=== PATIENT | male | born 1940 | race American Indian/Alaskan Native ===

== ENCOUNTER 2018-02-13 20:29 | Observation (INO) | payer BC, MEDICARE ==
[2018-02-13] MEDS ORDERED: ASPIRIN ONE (21:23)
[2018-02-13] MEDS ORDERED: ASPIRIN PO ONE (21:24)
[2018-02-13 22:04] LABS: Basophils % (Auto) 0.8 % (0.0-1.8); Eosinophils # (Auto) 0.3 K/mm3 (0.0-0.4); Eosinophils % (Auto) 5.6 % (0.0-4.3); Hematocrit 45.5 % (35.5-45.6); Hemoglobin 15.6 gm/dl (11.8-15.2); Lymphocytes % (Auto) 38.6 % (13.4-35.0); Mean Corpuscular HGB Conc 34 % (32-34); Mean Corpuscular Hemoglobin 32 pg (28-32); Mean Corpuscular Volume 93 fl (84-94); Monocytes # (Auto) 0.5 K/mm3 (0.0-0.8); Monocytes % (Auto) 10.1 % (0.0-7.3); Platelet Count 222 K/mm3 (140-440); Red Blood Count 4.89 M/mm3 (3.65-5.03)
[2018-02-13 22:08] LABS: Partial Thromboplastin Time 31.6 Sec. (24.2-36.6)
[2018-02-13 22:28] LABS: BUN/Creatinine Ratio 9; Blood Urea Nitrogen 9 mg/dL (9-20); Hemolysis Index 14
--- NOTE | 2018-02-13 23:41 | Emergency Department Report ---
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 Pain is left-sided chest like a pressure rated 5/10 in intensity, intermittent with no aggravating or relieving factors. Patient has some shortness of breath earlier today while at rest but denies shortness of breath at this time. Patient denies recent travel, leg pain/edema, history of PE/DVT, or known heart problems. Patient outpatient cardiac workup with [facility] patient access specialist early this year including stress test and echocardiogram and to his knowledge his workup was unremarkable. Denies history of previous cath. - Related Data Allergies Allergy/AdvReac Type Severity Reaction Status Date / Time No Known Allergies Allergy Unverified 02/13/18 21:24 Heart Score - HEART Score History: Slightly suspicious EKG: Non-specific Age: 45-65 Risk factors: 1-2 risk factors Troponin: < normal limit HEART Score: 3 ED Review of Systems ROS: Stated complaint: CHEST PAIN/ SOB Other details as noted in HPI Comment: All other systems reviewed and negative ED Past Medical Hx - Past Medical History Hx Hypertension: Yes Hx of Cancer: Yes (Lymph nodes) - Social History Smoking Status: Never Smoker Substance Use Type: Alcohol ED Physical Exam - General Limitations: No Limitations - Other Other exam information: General: No limitations, patient is alert in no acute distress Head exam: Atraumatic, normocephalic Eyes exam: Normal appearance ENT: Moist mucous membrane, normal oropharynx Neck exam: Normal inspection, full range of motion, no meningismus nontender Respiratory exam: Clear to auscultation bilateral, no wheezes, rales, crackles Cardiovascular: Normal rate and rhythm, normal heart sounds, chest wall nontender Abdomen: Soft, nondistended, and nontender, with normal bowel sounds, no rebound, or guarding Extremity: Full range of motion normal inspection no deformity, no calf tenderness or edema Back: Normal Inspection, full range of motion, no tenderness Neurologic: Alert, oriented x3, cranial nerves intact, no motor or sensory deficit Psychiatric: normal affect, normal mood Skin: Warm, dry, intact ED Course Vital Signs 02/13/18 02/13/18 02/13/18 21:19 23:34 23:41 Temperature 98.4 F 98.1 F Pulse Rate 74 70 67 Respiratory 17 18 Rate Blood Pressure 147/80 Blood Pressure 163/83 [Left] O2 Sat by Pulse 99 99 Oximetry 02/13/18 23:46 Temperature Pulse Rate 67 Respiratory 17 Rate Blood Pressure 163/83 Blood Pressure [Left] O2 Sat by Pulse 100 Oximetry - Consultations Consultation #1: 02/14/18 00:02 case d/w DR marshall supervisor [employer] Card for sy heart. Informed pt to be admitted. MELITA score - Melita Score Age > 65: (1) Yes Aspirin use within the Past 7 Days: (0) No 3 or more CAD Risk Factors: (0) No 2 or more Angina events in past 24 hrs: (0) No Known CAD with more than 50% Stenosis: (0) No ST Deviation Greater than 0.5mm: (0) No ED Medical Decision Making - Lab Data Result diagrams: 02/13/18 21:50 02/13/18 21:50 Lab Results 02/13/18 02/13/18 02/13/18 Range/Units 21:50 21:50 21:50 WBC 5.3 (4.5-11.0) K/mm3 RBC 4.89 (3.65-5.03) M/mm3 Hgb 15.6 H (11.8-15.2) gm/dl Hct 45.5 (35.5-45.6) % MCV 93 (84-94) fl MCH 32 (28-32) pg MCHC 34 (32-34) % RDW 15.0 (13.2-15.2) % Plt Count 222 (140-440) K/mm3 Lymph % (Auto) 38.6 H (13.4-35.0) % [place] % (Auto) 10.1 H (0.0-7.3) % Eos % (Auto) 5.6 H (0.0-4.3) % Baso % (Auto) 0.8 (0.0-1.8) % Lymph # 2.0 (1.2-5.4) K/mm3 Winn # 0.5 (0.0-0.8) K/mm3 Eos # 0.3 (0.0-0.4) K/mm3 Baso # 0.0 (0.0-0.1) K/mm3 Seg Neutrophils % 44.9 (40.0-70.0) % Seg Neutrophils # 2.4 (1.8-7.7) K/mm3 PT 12.6 (12.2-14.9) Sec. INR 0.90 (0.87-1.13) APTT 31.6 (24.2-36.6) Sec. D-Dimer < 135.00 (0-234) ng/mlDDU Sodium 135 L (137-145) mmol/L Potassium 3.2 L (3.6-5.0) mmol/L Chloride 94.0 L (98-107) mmol/L Carbon Dioxide 27 (22-30) mmol/L Anion Gap 17 mmol/L BUN 9 (9-20) mg/dL Creatinine 1.0 (0.8-1.5) mg/dL Estimated GFR > 60 ml/min BUN/Creatinine Ratio 9 % Glucose 138 H (75-100) mg/dL Calcium 9.0 (8.4-10.2) mg/dL Magnesium (1.7-2.3) mg/dL Troponin T < 0.010 (0.00-0.029) ng/mL 02/13/18 Range/Units 21:50 WBC (4.5-11.0) K/mm3 RBC (3.65-5.03) M/mm3 Hgb (11.8-15.2) gm/dl Hct (35.5-45.6) % MCV (84-94) fl MCH (28-32) pg MCHC (32-34) % RDW (13.2-15.2) % Plt Count (140-440) K/mm3 Lymph % (Auto) (13.4-35.0) % [place] % (Auto) (0.0-7.3) % Eos % (Auto) (0.0-4.3) % Baso % (Auto) (0.0-1.8) % Lymph # (1.2-5.4) K/mm3 Winn # (0.0-0.8) K/mm3 Eos # (0.0-0.4) K/mm3 Baso # (0.0-0.1) K/mm3 Seg Neutrophils % (40.0-70.0) % Seg Neutrophils # (1.8-7.7) K/mm3 PT (12.2-14.9) Sec. INR (0.87-1.13) APTT (24.2-36.6) Sec. D-Dimer (0-234) ng/mlDDU Sodium (137-145) mmol/L Potassium (3.6-5.0) mmol/L Chloride (98-107) mmol/L Carbon Dioxide (22-30) mmol/L Anion Gap mmol/L BUN (9-20) mg/dL Creatinine (0.8-1.5) mg/dL Estimated GFR ml/min BUN/Creatinine Ratio % Glucose (75-100) mg/dL Calcium (8.4-10.2) mg/dL Magnesium 1.80 (1.7-2.3) mg/dL Troponin T (0.00-0.029) ng/mL - EKG Data -: EKG Interpreted by Me EKG shows normal: sinus rhythm (65), axis (qrs 3), QRS complexes (qrsd 84), ST- T waves (lat t inv) Rate: normal - EKG Data When compared to previous EKG there are: previous EKG unavailable - Radiology Data Radiology results: image reviewed (cxr: kae read by me, official report pending) - Medical Decision Making cp no stemi initial trop neg (repeat neg) possible neg card workup earlier this year (not available for review at this time) ddimer neg, with low pretest wells criteria cxr prelim read by me kae asa given case d/w cards, will admit for further review Hypokalemia cause unclear (awaiting verification of current med list) po kcl provided mag normal - Differential Diagnosis unstable angina, MT, pneumothorax, atypical chest pain, PE Critical Care Time: No Critical care attestation.: If time is entered above; I have spent that time in minutes in the direct care of this critically ill patient, excluding procedure time. ED Disposition Clinical Impression: Chest pain, Hypokalemia, HTN (hypertension) Disposition: OP ADMIT IP TO THIS HOSP Is pt being admited?: Yes Condition: Stable Time of Disposition: 00:07 (Dr blackburn/hospitalist)
[2018-02-13] MEDS ORDERED: K-DUR PO ONE (23:42)
--- NOTE | 2018-02-14 00:25 | XRay Report ---
FINAL REPORT EXAM: XR CHEST ROUTINE 2V HISTORY: cp TECHNIQUE: PA and lateral views of the chest were submitted. FINDINGS: The heart is mildly enlarged. The lungs are clear. Pleural fluid is not seen. The lungs are not congested. The skeletal structures reveal multilevel disc degeneration in the thoracic spine. IMPRESSION: No active chest disease.
[2018-02-14] MEDS ORDERED: PERCOCET 5/325 PO PRN (00:57)
[2018-02-14] MEDS ORDERED: SODIUM CHLORIDE FLUSH SYRINGE 10 ML IV PRN (00:57)
[2018-02-14] MEDS ORDERED: TYLENOL PO PRN (00:57)
[2018-02-14] MEDS ORDERED: ZOFRAN IV PRN (00:57)
--- NOTE | 2018-02-14 00:57 | History and Physical Report ---
History of Present Illness Date of examination: 02/14/18 History of present illness: 77-year-old man with history of hypertension, hyperlipidemia comes emergency room with complaints of left-sided chest pain that started yesterday. He describes it as a heavy sensation, intermittent in nature, unable to fill along the lateral circumflex, density, 10, no radiation, he can't identify exacerbating or relieving factors. Denies nausea vomiting, transfer, diaphoresis or palpitation. He had a stress test and cardiac cath in September, states everything was normal Review of systems Constitutional: no weight loss, chills Ears, eyes, nose, mouth and throat: no nasal congestion, no nasal discharge, no sinus pressure, no vision change, no red eye. Neck: No neck pain or rigidity. Cardiovascular: no palpitations Respiratory: No cough, shortness of breath Gastrointestinal: no abdominal pain, hematochezia Genitourinary : no dysuria, frequency , no hematuria Musculoskeletal: no joint swelling or muscle ache Integumentary: no rash, no pruritis Neurological: no parathesias, no numbness, no focal weakness Endocrine: no cold or heat intolerance, no polyuria or polydipsia Hematologic/Lymphatic: no easy bruising, no easy bleeding, no gland swelling Allergic/Immunologic: no urticaria, no angioedema. PAST MEDICAL HISTORY: Hypertension, hyperlipidemia PAST SURGICAL HISTORY: Surgery on neck for cancer SOCIAL HISTORY: Admits to alcohol, no tobacco or drugs FAMILY HISTORY: Hypertension Medications and Allergies Allergies Allergy/AdvReac Type Severity Reaction Status Date / Time No Known Allergies Allergy Unverified 02/13/18 21:24 Exam - Physical Exam Narrative exam: Gen. appearance: Patient lying in bed, no apparent distress HEENT: Normocephalic, atraumatic, pupils equally round and reactive to light, extraocular movement intact, and no sclericterus,. No JVD or thyromegaly or nodule,neck supple, no carotid bruit ,mucous membranes moist, no exudate or erythema Heart: S1, S2, regular rate and rhythm Lungs: Clear to auscultation bilaterally, breathing comfortable Abdomen: Positive bowel sounds, nontender, nondistended, no organomegaly Extremity: No edema, cyanosis, clubbing Skin: No rash, nodules, warm, dry Neuro: Oriented 3, cranial nerves II-12 intact, speech is fluent, motor and sensory intact - Constitutional Vitals: Temp Pulse Resp BP Pulse Ox 98.1 F 67 17 163/83 100 02/13/18 23:41 02/13/18 23:46 02/13/18 23:46 02/13/18 23:46 02/13/18 23:46 Results - Labs CBC & Chem 7: 02/13/18 21:50 02/13/18 21:50 Labs: Abnormal lab results 02/13/18 02/13/18 Range/Units 21:50 21:50 Hgb 15.6 H (11.8-15.2) gm/dl Lymph % (Auto) 38.6 H (13.4-35.0) % [place] % (Auto) 10.1 H (0.0-7.3) % Eos % (Auto) 5.6 H (0.0-4.3) % Sodium 135 L (137-145) mmol/L Potassium 3.2 L (3.6-5.0) mmol/L Chloride 94.0 L (98-107) mmol/L Glucose 138 H (75-100) mg/dL - Imaging and Cardiology EKG: image reviewed Chest x-ray: image reviewed Assessment and Plan Assessment Chest pain Hypertension Hyperlipidemia Plan Admit to medicine Check cardiac enzymes, consult cardiology Percocet for pain, DVT prophylaxis
[2018-02-14 01:29] LABS: Creatine Kinase MB 2.7 ng/mL (0.0-4.0)
[2018-02-14 04:01] LABS: Basophils % (Auto) 0.6 % (0.0-1.8); Eosinophils # (Auto) 0.3 K/mm3 (0.0-0.4); Hematocrit 43.3 % (35.5-45.6); Hemoglobin 14.9 gm/dl (11.8-15.2); Lymphocytes # (Auto) 2.4 K/mm3 (1.2-5.4); Lymphocytes % (Auto) 41.6 % (13.4-35.0); Mean Corpuscular HGB Conc 34 % (32-34); Mean Corpuscular Hemoglobin 32 pg (28-32); Mean Corpuscular Volume 94 fl (84-94); Monocytes # (Auto) 0.6 K/mm3 (0.0-0.8); Monocytes % (Auto) 10.9 % (0.0-7.3); Platelet Count 217 K/mm3 (140-440); Red Blood Count 4.62 M/mm3 (3.65-5.03); Red Cell Distribution Width 15.1 % (13.2-15.2)
[2018-02-14 04:20] LABS: BUN/Creatinine Ratio 11; Blood Urea Nitrogen 11 mg/dL (9-20); Hemolysis Index 6
[2018-02-14 09:13] LABS: Creatine Kinase MB 2.2 ng/mL (0.0-4.0)
[2018-02-14] MEDS ORDERED: LOVENOX SUB-Q SCH (10:00)
--- NOTE | 2018-02-14 11:08 | Consultation ---
History of Present Illness Consult date: 02/14/18 Consult reason: chest pain History of present illness: This is a 77yr old male who is admitted with chest pain. Patient describes chest pain as midsternal pain that began shortly after eating fast food associated with nausea. He denies shortness of breath and palpitations. He denies vomiting. There was no syncope. His most latest cardiac workup was done 4 months ago. He had a thallium stress test that reports a small fixed basal inferolateral wall defect of mild intensity. An echocardiogram documents mild left ventricular hypertrophy and a normal left ventricular ejection fraction, 55-60%. Today, patient reports he is feeling better. He reports his chest pain has resolved. Cardiac enzymes were negative. His ECG is a sinus rhythm with nonspecific Twave abnormalities. No change in comparison to prior. Medications and Allergies Allergies Allergy/AdvReac Type Severity Reaction Status Date / Time No Known Allergies Allergy Unverified 02/13/18 21:24 Active Meds: Active Medications Acetaminophen (Tylenol) 650 mg PO Q4H PRN PRN Reason: Pain MILD(1-3)/Fever >100.5/[place] Enoxaparin Sodium (Lovenox) 40 mg SUB-Q QDAY LEW Ondansetron HCl (Zofran) 4 mg IV Q8H PRN PRN Reason: Nausea And Vomiting Oxycodone/Acetaminophen (Percocet 5/325) 1 tab PO Q6H PRN PRN Reason: Pain, Moderate (4-6) Sodium Chloride (Sodium Chloride Flush Syringe 10 Ml) 10 ml IV BID LEW Sodium Chloride (Sodium Chloride Flush Syringe 10 Ml) 10 ml IV PRN PRN PRN Reason: LINE FLUSH Physical Examination Vital Signs Temp Pulse BP 98.4 F 74 147/80 02/13/18 21:19 02/13/18 21:19 02/13/18 21:19 General appearance: no acute distress HEENT: Positive: PERRL Neck: Positive: trachea midline Cardiac: Positive: Reg Rate and Rhythm Lungs: Positive: Decreased Breath Sounds Neuro: Positive: Grossly Intact Extremities: Absent: edema Results 02/14/18 03:42 02/14/18 03:42 Cardiac Enzymes 02/14/18 02/14/18 Range/Units 00:09 08:27 CK-MB (CK-2) 2.7 2.2 (0.0-4.0) ng/mL Coagulation 02/13/18 Range/Units 21:50 PT 12.6 (12.2-14.9) Sec. INR 0.90 (0.87-1.13) APTT 31.6 (24.2-36.6) Sec. CBC 02/13/18 02/14/18 Range/Units 21:50 03:42 WBC 5.3 5.7 (4.5-11.0) K/mm3 RBC 4.89 4.62 (3.65-5.03) M/mm3 Hgb 15.6 H 14.9 (11.8-15.2) gm/dl Hct 45.5 43.3 (35.5-45.6) % Plt Count 222 217 (140-440) K/mm3 Lymph # 2.0 2.4 (1.2-5.4) K/mm3 [place] # 0.5 0.6 (0.0-0.8) K/mm3 Eos # 0.3 0.3 (0.0-0.4) K/mm3 Baso # 0.0 0.0 (0.0-0.1) K/mm3 Comprehensive Metabolic Panel 02/13/18 02/14/18 Range/Units 21:50 03:42 Sodium 135 L 138 (137-145) mmol/L Potassium 3.2 L 3.7 (3.6-5.0) mmol/L Chloride 94.0 L 96.8 L (98-107) mmol/L Carbon Dioxide 27 30 (22-30) mmol/L BUN 9 11 (9-20) mg/dL Creatinine 1.0 1.0 (0.8-1.5) mg/dL Glucose 138 H 132 H (75-100) mg/dL Calcium 9.0 9.0 (8.4-10.2) mg/dL Assessment and Plan - Patient Problems (1) Chest pain Current Visit: Yes Status: Acute (2) HTN (hypertension) Current Visit: Yes Status: Acute
[2018-02-14] MEDS: SODIUM CHLORIDE FLUSH SYRINGE 10 ML IV SCH ×2 (11:15→21:52)
--- NOTE | 2018-02-14 12:08 | Progress Note ---
Assessment and Plan Assessment and plan: Patient is 77 yo man with a history of hypertension and dyslipidemia who pw left cp. It appears he had recent cardiac workup with a stress test, so Cardiology consulted for direction on recurrent chest pains. -Chest pains, appears atypical by history, suspect GERD related: treat with PPI and await Cardiology's recommendation -GERD: treat with protonix -Hypertension: low salt diet, treat with antihypertensives -Dyslipidemia: treat with statins. -DVT ppx: sq lovenox History Interval history: Patient was seen and examined. Follow-up on current diagnosis of left sided chest pains, resolved currently. Overnight uneventful. Patient denies any chest pain, shortness breath, nausea/vomiting or severe headaches. Imaging, nursing note, chart, labs and old chart reviewed. Discussed with patient. Hospitalist Physical - Physical exam Narrative exam: GEN: WDWN, NAD, Awake, Alert, Orientated x 3 HEENT: NCAT, EOMI, PERRL, OP Clear NECK: supple, no adenopathy, no thyromegaly, no JVD CVS/HEART: RRR, normal S1S2, pulses present bilaterally CHEST/LUNGS: CTA B, Symmetrical chest expansion, good air entry bilaterally GI/Abdomen: soft, NTND, good bowel sounds, no guarding or rebound /Bladder: no suprapubic tenderness, no CVA or paraspinal tenderness EXT/Skin: no c/c/e, no obvious rash MSK: FROM x 4 Neuro: CN 2-12 grossly intact, no new focal deficits Psych: calm - Constitutional Vitals: Temp Pulse Resp BP Pulse Ox 98.1 F 66 20 119/83 97 02/13/18 23:41 02/14/18 10:30 02/14/18 10:30 02/14/18 10:30 02/14/18 10:30 General appearance: Present: no acute distress Results - Labs CBC & Chem 7: 02/14/18 03:42 02/14/18 03:42 Labs: Laboratory Last Values WBC 5.7 K/mm3 (4.5-11.0) 02/14/18 03:42 RBC 4.62 M/mm3 (3.65-5.03) 02/14/18 03:42 Hgb 14.9 gm/dl (11.8-15.2) 02/14/18 03:42 Hct 43.3 % (35.5-45.6) 02/14/18 03:42 MCV 94 fl (84-94) 02/14/18 03:42 MCH 32 pg (28-32) 02/14/18 03:42 MCHC 34 % (32-34) 02/14/18 03:42 RDW 15.1 % (13.2-15.2) 02/14/18 03:42 Plt Count 217 K/mm3 (140-440) 02/14/18 03:42 Lymph % (Auto) 41.6 % (13.4-35.0) H 02/14/18 03:42 [place] % (Auto) 10.9 % (0.0-7.3) H 02/14/18 03:42 Eos % (Auto) 5.0 % (0.0-4.3) H 02/14/18 03:42 Baso % (Auto) 0.6 % (0.0-1.8) 02/14/18 03:42 Lymph # 2.4 K/mm3 (1.2-5.4) 02/14/18 03:42 [place] # 0.6 K/mm3 (0.0-0.8) 02/14/18 03:42 Eos # 0.3 K/mm3 (0.0-0.4) 02/14/18 03:42 Baso # 0.0 K/mm3 (0.0-0.1) 02/14/18 03:42 Seg Neutrophils % 41.9 % (40.0-70.0) 02/14/18 03:42 Seg Neutrophils # 2.4 K/mm3 (1.8-7.7) 02/14/18 03:42 PT 12.6 Sec. (12.2-14.9) 02/13/18 21:50 INR 0.90 (0.87-1.13) 02/13/18 21:50 APTT 31.6 Sec. (24.2-36.6) 02/13/18 21:50 D-Dimer < 135.00 ng/mlDDU (0-234) 02/13/18 21:50 Sodium 138 mmol/L (137-145) 02/14/18 03:42 Potassium 3.7 mmol/L (3.6-5.0) 02/14/18 03:42 Chloride 96.8 mmol/L (98-107) L 02/14/18 03:42 Carbon Dioxide 30 mmol/L (22-30) 02/14/18 03:42 Anion Gap 15 mmol/L 02/14/18 03:42 BUN 11 mg/dL (9-20) 02/14/18 03:42 Creatinine 1.0 mg/dL (0.8-1.5) 02/14/18 03:42 Estimated GFR > 60 ml/min 02/14/18 03:42 BUN/Creatinine Ratio 11 % 02/14/18 03:42 Glucose 132 mg/dL (75-100) H 02/14/18 03:42 Calcium 9.0 mg/dL (8.4-10.2) 02/14/18 03:42 Magnesium 1.80 mg/dL (1.7-2.3) 02/13/18 21:50 Total Creatine Kinase 204 units/L (55-170) H 02/14/18 08:27 CK-MB (CK-2) 2.2 ng/mL (0.0-4.0) 02/14/18 08:27 CK-MB (CK-2) Rel Index 1.0 (0-4) 02/14/18 08:27 Troponin T < 0.010 ng/mL (0.00-0.029) 02/14/18 08:27
[2018-02-14] MEDS ORDERED: NACL 0.9% 500 ML 500 ML IV SCH (19:00)
[2018-02-14] MEDS: HALFPRIN EC PO SCH (21:52)
[2018-02-14] MEDS: PROTONIX PO SCH (21:52)
[2018-02-15 05:55] LABS: INR 0.92 (0.87-1.13)
[2018-02-15 05:56] LABS: Partial Thromboplastin Time 35.3 Sec. (24.2-36.6)
[2018-02-15 06:07] LABS: BUN/Creatinine Ratio 10; Blood Urea Nitrogen 10 mg/dL (9-20); Calcium 8.6 mg/dL (8.4-10.2); Hemolysis Index 3
[2018-02-15] MEDS: PROTONIX PO SCH (10:00)
[2018-02-15] MEDS: HALFPRIN EC PO SCH (10:00)
[2018-02-15] MEDS: SODIUM CHLORIDE FLUSH SYRINGE 10 ML IV SCH ×2 (10:00→21:45)
[2018-02-15] MEDS ORDERED: XYLOCAINE 2% INFILTRATI ONE ×4 (11:49→13:10)
[2018-02-15] MEDS ORDERED: CALAN ONE ×2 (11:49)
[2018-02-15] MEDS ORDERED: HEPARIN/NS 5000 UNIT/500ML(CATH LAB) 1,000 ML IR ONE ×2 (11:49)
[2018-02-15] MEDS ORDERED: HEPARIN 10,000 UNITS/10 ML ONE ×2 (11:49)
[2018-02-15] MEDS ORDERED: NITROGLYCERIN SYRINGE 3 ML ONE ×2 (11:50)
[2018-02-15] MEDS ORDERED: SUBLIMAZE ONE ×2 (11:51)
[2018-02-15] MEDS ORDERED: NACL 0.9% 500 ML 0 ML ONE ×2 (11:51)
[2018-02-15] MEDS ORDERED: VERSED ONE ×2 (11:52)
[2018-02-15] MEDS ORDERED: SUBLIMAZE IV ONE ×4 (12:26→13:21)
[2018-02-15] MEDS ORDERED: VERSED IV ONE ×3 (12:26→13:21)
[2018-02-15] MEDS ORDERED: NITROGLYCERIN SYRINGE UD ONE ×2 (12:29→13:12)
[2018-02-15] MEDS ORDERED: CALAN IV ONE ×2 (12:29→13:12)
[2018-02-15] MEDS ORDERED: HEPARIN 10,000 UNITS/10 ML IV ONE ×2 (12:29→13:12)
--- NOTE | 2018-02-15 12:34 | Progress Note ---
Assessment and Plan Assessment and plan: Patient is 77 yo man with a history of hypertension and dyslipidemia who pw left cp. It appears he had recent cardiac workup with a stress test, so Cardiology consulted for direction on recurrent chest pains. -Chest pains, appears atypical by history, suspect GERD related: treat with PPI -GERD: treat with protonix -Hypertension: low salt diet, treat with antihypertensives -Dyslipidemia: treat with statins. -DVT ppx: sq lovenox Cardiac catherization today History Interval history: Patient was seen and examined. Follow-up on current diagnosis of left sided chest pains, resolved currently. Overnight uneventful. Patient denies any chest pain, shortness breath, nausea/vomiting or severe headaches. Imaging, nursing note, chart, labs and old chart reviewed. Discussed with patient. Hospitalist Physical - Physical exam Narrative exam: GEN: WDWN, NAD, Awake, Alert, Orientated x 3 HEENT: NCAT, EOMI, PERRL, OP Clear NECK: supple, no adenopathy, no thyromegaly, no JVD CVS/HEART: RRR, normal S1S2, pulses present bilaterally CHEST/LUNGS: CTA B, Symmetrical chest expansion, good air entry bilaterally GI/Abdomen: soft, NTND, good bowel sounds, no guarding or rebound /Bladder: no suprapubic tenderness, no CVA or paraspinal tenderness EXT/Skin: no c/c/e, no obvious rash MSK: FROM x 4 Neuro: CN 2-12 grossly intact, no new focal deficits Psych: calm - Constitutional Vitals: Temp Pulse Resp BP Pulse Ox 98.1 F 68 18 137/85 97 02/15/18 08:01 02/15/18 08:01 02/15/18 08:01 02/15/18 08:01 02/15/18 08:01 General appearance: Present: no acute distress Results - Labs CBC & Chem 7: 02/14/18 03:42 02/15/18 05:19 Labs: Laboratory Last Values WBC 5.7 K/mm3 (4.5-11.0) 02/14/18 03:42 RBC 4.62 M/mm3 (3.65-5.03) 02/14/18 03:42 Hgb 14.9 gm/dl (11.8-15.2) 02/14/18 03:42 Hct 43.3 % (35.5-45.6) 02/14/18 03:42 MCV 94 fl (84-94) 02/14/18 03:42 MCH 32 pg (28-32) 02/14/18 03:42 MCHC 34 % (32-34) 02/14/18 03:42 RDW 15.1 % (13.2-15.2) 02/14/18 03:42 Plt Count 217 K/mm3 (140-440) 02/14/18 03:42 Lymph % (Auto) 41.6 % (13.4-35.0) H 02/14/18 03:42 [place] % (Auto) 10.9 % (0.0-7.3) H 02/14/18 03:42 Eos % (Auto) 5.0 % (0.0-4.3) H 02/14/18 03:42 Baso % (Auto) 0.6 % (0.0-1.8) 02/14/18 03:42 Lymph # 2.4 K/mm3 (1.2-5.4) 02/14/18 03:42 [place] # 0.6 K/mm3 (0.0-0.8) 02/14/18 03:42 Eos # 0.3 K/mm3 (0.0-0.4) 02/14/18 03:42 Baso # 0.0 K/mm3 (0.0-0.1) 02/14/18 03:42 Seg Neutrophils % 41.9 % (40.0-70.0) 02/14/18 03:42 Seg Neutrophils # 2.4 K/mm3 (1.8-7.7) 02/14/18 03:42 PT 12.8 Sec. (12.2-14.9) 02/15/18 05:19 INR 0.92 (0.87-1.13) 02/15/18 05:19 APTT 35.3 Sec. (24.2-36.6) 02/15/18 05:19 D-Dimer < 135.00 ng/mlDDU (0-234) 02/13/18 21:50 Sodium 138 mmol/L (137-145) 02/15/18 05:19 Potassium 3.9 mmol/L (3.6-5.0) 02/15/18 05:19 Chloride 98.1 mmol/L (98-107) 02/15/18 05:19 Carbon Dioxide 29 mmol/L (22-30) 02/15/18 05:19 Anion Gap 15 mmol/L 02/15/18 05:19 BUN 10 mg/dL (9-20) 02/15/18 05:19 Creatinine 1.0 mg/dL (0.8-1.5) 02/15/18 05:19 Estimated GFR > 60 ml/min 02/15/18 05:19 BUN/Creatinine Ratio 10 % 02/15/18 05:19 Glucose 144 mg/dL (75-100) H 02/15/18 05:19 POC Glucose 123 (70-105) H 02/15/18 06:52 Calcium 8.6 mg/dL (8.4-10.2) 02/15/18 05:19 Magnesium 1.80 mg/dL (1.7-2.3) 02/13/18 21:50 Total Creatine Kinase 204 units/L (55-170) H 02/14/18 08:27 CK-MB (CK-2) 2.2 ng/mL (0.0-4.0) 02/14/18 08:27 CK-MB (CK-2) Rel Index 1.0 (0-4) 02/14/18 08:27 Troponin T < 0.010 ng/mL (0.00-0.029) 02/14/18 08:27
[2018-02-15] MEDS ORDERED: HEPARIN 10,000 UNITS/10 ML 5,000 UNIT in NACL 0.9% 500 ML 500 ML IR ONE (12:45)
[2018-02-15] MEDS ORDERED: NACL 0.9% 1000 ML 1,000 ML IV SCH (14:00)
--- NOTE | 2018-02-15 14:09 | Event Note ---
Date: 02/15/18 Cardiac catheterization was completed via the right femoral artery. No complications. Findings: Diffuse mild to moderate nonobstructive multivessel atherosclerosis. There is a focal, stenosis of the first obtuse marginal, of borderline severity. LVentricle ejection fraction is normal, 55-60%. Recommend medical therapy and aggressive risk factor modification, okay for cardiac discharge on medications.
--- NOTE | 2018-02-15 16:31 | Cardiac Catherization Report ---
CARDIAC CATHETERIZATION REASON FOR PROCEDURE: The patient is a 77-year-old man who presented to the hospital with chest pain. A cardiac catheterization was recommended. DESCRIPTION OF PROCEDURE: The patient was prepped and draped in a sterile fashion after informed consent. Initial access was obtained via the right radial artery. A 6-Gibraltarian sheath was placed and we administered routine radial cocktail via the sheath. On retrograde catheterization via the right radial artery, we encountered a radial loop at the elbow. The loop was successfully traversed and straightened, and the catheter was advanced to the right subclavian. However, after the right subclavian, we encountered severe tortuosity involving the right brachiocephalic trunk. This additional tortuosity was not amenable to catheter advancement into the ascending aorta. The right radial access procedure was then abandoned and we turned our attention to the right femoral access. The right femoral artery was then entered successfully, and 6-Gibraltarian sheath placed, with no difficulty, a retrograde left and right coronary angiography was performed. A #4 right and left Shelby catheters were used. We then exchanged for a pigtail catheter, performed left ventricle angiography. The catheters were then removed, sheath removed, and hemostasis achieved using an Angio-Seal device. The patient was returned to the postprocedure unit in stable condition. There were no complications. FINDINGS: HEMODYNAMICS: Left ventricle end diastolic pressure was 14. Ascending aortic pressure 152/86. There was no significant pressure gradient on pullback across the aortic valve. CORONARY ANGIOGRAPHY: The left main coronary artery was free of significant disease. There is diffuse mild atherosclerosis involving the proximal, mid, and distal segments of the LAD as well as diagonal branches. No significant obstructive lesions were noted in the LAD system. The first obtuse marginal branch of the circumflex artery contained a focal, 60-70% stenosis of its proximal to mid segment. Following that, the second obtuse marginal branch contained a focal 60-70% stenosis at its ostium. Otherwise, the rest of the circumflex system contained diffuse moderate atherosclerotic disease. The right coronary artery was dominant, and contained diffuse mild to moderate atherosclerosis. There was normal left ventricular systolic function, ejection fraction 55-60%. CONCLUSION: 1. Moderate to moderately severe focal disease of the obtuse marginal branches as noted above, otherwise, diffuse nonobstructive atherosclerosis of all 3 coronary systems. 2. Well preserved left ventricular systolic function, ejection fraction 55-60%. RECOMMENDATION: 1. Aggressive risk factor modification. 2. Medical therapy. 3. The patient should have symptoms monitored on optimal medical therapy, if medical therapy fails at symptom control, and there is demonstrable ischemia in the lateral wall, circumflex territory, we will consider coronary intervention to the first obtuse marginal branch. JOB# [id number] CA/NTS
[2018-02-16] MEDS ORDERED: NORVASC PO SCH (10:00)
[2018-02-16] MEDS: PROTONIX PO SCH (10:52)
[2018-02-16] MEDS: HALFPRIN EC PO SCH (10:52)
[2018-02-16] MEDS: SODIUM CHLORIDE FLUSH SYRINGE 10 ML IV SCH (10:52)
--- NOTE | 2018-02-16 12:03 | Discharge Summary ---
Providers - Providers Date of Admission: 02/14/18 00:59 Date of discharge: 02/16/18 Attending physician: DISHA BHANDARI 02/14/18 00:01 Consult to Physician [CONS] Urgent Comment: Consulting Provider: STAN SANTANA Physician Instructions: Reason For Exam: chest pain, htn 02/15/18 13:56 Consult to Cardiac Rehabilitation [CONS] Routine Reason For Exam: Cardiac Rehab Evaluation Primary care physician: [employer] Hospitalization Condition: Stable Hospital course: Patient is 77 yo man with a history of hypertension and dyslipidemia who pw left cp. It appears he had recent cardiac workup with a stress test, so Cardiology consulted for direction on recurrent chest pains. -Chest pains, appears atypical by history, suspect GERD related: treat with PPI -CAD -GERD: treat with protonix -Hypertension: low salt diet, treat with antihypertensives -Dyslipidemia: treat with statins. -DVT ppx: sq lovenox per [employer] Manager, Dr. Cam: "Cardiac catheterization was completed via the right femoral artery. No complications. Findings: Diffuse mild to moderate nonobstructive multivessel atherosclerosis. There is a focal, stenosis of the first obtuse marginal, of borderline severity. LVentricle ejection fraction is normal, 55-60%. Recommend medical therapy and aggressive risk factor modification, okay for cardiac discharge on medications." Disposition: [id number] TO HOME OR SELFCARE Time spent for discharge: 34 minutes Core Measure Documentation - Palliative Care Palliative Care/ Comfort Measures: Not Applicable - Core Measures Any of the following diagnoses?: none - VTE Discharge Requirements Deep Vein Thrombosis/Pulmonary Embolism Present on Admission: No Has pt received <5 days of overlap therapy or INR<2.0: No Anticoagulant overlap therapy prescribed at discharge: No Contraindication No Overlap Therapy order at DC: Not Indicated Exam - Physical Exam Narrative exam: GEN: WDWN, NAD, Awake, Alert, Orientated x 3 HEENT: NCAT, EOMI, PERRL, OP Clear NECK: supple, no adenopathy, no thyromegaly, no JVD CVS/HEART: RRR, normal S1S2, pulses present bilaterally CHEST/LUNGS: CTA B, Symmetrical chest expansion, good air entry bilaterally GI/Abdomen: soft, NTND, good bowel sounds, no guarding or rebound /Bladder: no suprapubic tenderness, no CVA or paraspinal tenderness EXT/Skin: no c/c/e, no obvious rash MSK: FROM x 4 Neuro: CN 2-12 grossly intact, no new focal deficits Psych: calm - Constitutional Vitals: Temp Pulse Resp BP Pulse Ox 98.1 F 67 12 171/90 96 02/16/18 09:07 02/16/18 10:52 02/16/18 09:51 02/16/18 10:52 02/16/18 09:07 Plan Activity: other (no strenous activity until cleared by [employer] Manager) Diet: low salt Follow up with: PRIMARY CARE, [Primary Care Provider] - 3-5 Days STAN SANTANA MD [Staff Physician] - 7 Days Prescriptions: AtorvaSTATin [Lipitor] 40 mg PO QHS #30 tablet amLODIPine [Norvasc] 2.5 mg PO QDAY #30 tablet Aspirin EC [Aspirin Enteric Coated TAB] 81 mg PO QDAY #30 tablet Nitroglycerin [Nitrostat] 0.4 mg SL Q5M PRN #15 tab PRN Reason: Chest Pain Pantoprazole [Protonix TAB] 40 mg PO QDAY #7 tablet
--- NOTE | 2018-02-16 12:06 | Progress Note ---
Assessment and Plan Chest Pain Abnormal MPI Sep 2017 revealing a reversible inferior wall defect Non-obstructive CAD by cath this admission, normal LVEF Systemic Hypertension Hyperlipidemia Type II DM Recommendations: Medical therapy for non-obstructive CAD Outpatient follow-up Subjective Date of service: 02/16/18 Principal diagnosis: Chest Pain Interval history: Patient denies chest pain or shortness of breath Right wrist intact - no hematoma and no drainage with +2 pulse Objective Vital Signs Temp Pulse Resp Resp BP BP Pulse Ox 02/16/18 10:52 67 171/90 02/16/18 09:51 12 02/16/18 09:07 98.1 F 67 18 171/90 96 02/16/18 05:45 98.4 F 63 20 135/86 97 02/16/18 04:03 63 98 02/15/18 23:45 67 99 02/15/18 22:00 20 02/15/18 19:46 98.1 F 88 156/97 97 02/15/18 16:32 97.9 F 58 L 18 158/79 98 02/15/18 16:30 98.6 F 80 20 140/82 99 02/15/18 16:00 98 F 82 20 138/78 99 02/15/18 15:30 98.4 F 76 20 132/80 98 02/15/18 15:15 97.8 F 76 20 134/84 98 02/15/18 15:00 98 F 72 18 130/78 99 02/15/18 14:45 98.2 F 70 20 136/84 99 02/15/18 14:05 74 02/15/18 14:00 20 - Physical Examination HEENT: Positive: PERRL Neck: Positive: trachea midline Cardiac: Positive: Reg Rate and Rhythm Lungs: Positive: Normal Exam Neuro: Positive: Grossly Intact Extremities: Absent: edema - Imaging and Cardiology EKG: image reviewed
[2018-02-16 13:32] VITALS: BP 175/91
== END 2018-02-16 14:32 | disposition home or self-care (01) ==
LOC: ED 20:29 → 4A 02-14 00:59
PROVIDERS: ADMIT Internal Medicine; ATTEND Internal Medicine
DX: I10 Essential (primary) hypertension (principal); R07.89 Other chest pain; E78.5 Hyperlipidemia, unspecified
CPT/HCPCS: 36415; 71046; 80048; 82550; 82553; 82962; 83735; 84484; 85025; 85379; 85610; 85730; 93005; 93010; 93458; 96372; 99285; C1760; C1769; C1894; G0378; J1644; J1650; J2250; J3010; J7040; Q9967